=== PATIENT | female | born 1960 | race Caucasian/White ===

== ENCOUNTER 2017-05-19 11:19 | Emergency (ER) | payer BC ==
--- NOTE | 2017-05-19 12:19 | EDM.PDOC ---
ED HPI GENERAL MEDICAL PROBLEM - General Chief Complaint: General Stated Complaint: FLU Time Seen by Provider: 05/19/17 12:05 Source of Information: Reports: Patient History Limitations: Reports: No Limitations - History of Present Illness INITIAL COMMENTS - FREE TEXT/NARRATIVE: 56 yo female presents to the ER for about a week's duration of influenza-like sx 's. Called the clinic for the first time today and they could not get her in so sent her to the ER. Has had congestion, cough, and low grade fevers at times. No GI sx's. No rash. She did not get a flu shot and is not a smoker. Is missing work. Onset: Gradual Onset Date: 05/13/17 Duration: Day(s):, Constant Location: Reports: Face (nose), Chest Quality: Reports: Other (no pain) Severity: Moderate Improves with: Reports: None Worsens with: Reports: None Context: Reports: Other (URI sx's. No influenza vaccine.) Associated Symptoms: Reports: Cough, Fever/Chills, Loss of Appetite. Denies: Chest Pain, Nausea/Vomiting, Shortness of Breath Treatments VERIFICATION MANAGER: Reports: Other (see below) (none) - Related Data Allergies Allergy/AdvReac Type Severity Reaction Status Date / Time No Known Allergies Allergy Verified 05/19/17 11:29 Home Meds: Home Meds NK [No Known Home Meds] 05/19/17 [History] Past Medical History HEENT History: Reports: Sinusitis Neurological History: Reports: Migraines Social & Family History - Tobacco Use Smoking Status *Q: Never Smoker Second Hand Smoke Exposure: Yes - Alcohol Use Days Per Week of Alcohol Use: 1 Number of Drinks Per Day: 1 Total Drinks Per Week: 1 - Recreational Drug Use Recreational Drug Use: No ED ROS GENERAL - Review of Systems Review Of Systems: See Below Constitutional: Reports: Fever, Chills, Malaise HEENT: Reports: Rhinitis Respiratory: Reports: Cough, Sputum (at times). Denies: Shortness of Breath, Wheezing Cardiovascular: Reports: No Symptoms GI/Abdominal: Reports: No Symptoms : Reports: No Symptoms Musculoskeletal: Reports: No Symptoms Skin: Reports: No Symptoms Neurological: Reports: No Symptoms Psychiatric: Reports: No Symptoms ED EXAM, GENERAL - Physical Exam Exam: See Below Exam Limited By: No Limitations General Appearance: Alert, WD/WN, No Apparent Distress Eye Exam: Bilateral Eye: Normal Inspection Ears: Normal External Exam, Normal Canal, Hearing Grossly Normal, Normal TMs Ear Exam: Bilateral Ear: Auricle Normal, Canal Normal, TM normal Nose: Nasal Drainage (mostly white), Other (congestion present) Throat/Mouth: Normal Inspection, Normal Lips, Normal Oropharynx, Normal Voice, No Airway Compromise Head: Atraumatic, Normocephalic Neck: Normal Inspection, Supple Respiratory/Chest: No Respiratory Distress, Lungs Clear, Normal Breath Sounds, No Accessory Muscle Use Cardiovascular: Regular Rate, Rhythm, No Edema Extremities: Normal Inspection Neurological: Alert, Oriented, CN II-XII Intact, Normal Cognition, No Motor/ Sensory Deficits Psychiatric: Normal Affect, Normal Mood Skin Exam: Warm, Dry, Intact, Normal Color, No Rash Course - Vital Signs Last Recorded V/S: Last Vital Signs Temp 36.9 C 05/19/17 11:19 Pulse 105 H 05/19/17 11:19 Resp 18 05/19/17 11:19 BP 117/59 L 05/19/17 11:19 Pulse Ox 100 05/19/17 11:19 - Orders/Labs/Meds Labs: Laboratory Tests 05/19/17 Range/Units 12:33 WBC 9.7 (4.5-12.0) X10-3/uL RBC 4.05 (3.23-5.20) x10(6)uL Hgb 12.6 (11.5-15.5) g/dL Hct 37.3 (30.0-51.3) % MCV 92.1 (80-96) fL MCH 31.0 (27.7-33.6) pg MCHC 33.7 (32.2-35.4) g/dL RDW 11.9 (11.5-15.5) % Plt Count 124 L (125-369) X10(3)uL Departure - Departure Time of Disposition: 13:00 Disposition: Home, Self-Care 01 Condition: Good Clinical Impression: Influenza-like illness - Discharge Information Referrals: PCP,Not In Area [Primary Care Provider] - Forms: ED Department Discharge
== END 2017-05-19 13:10 | disposition home or self-care (01) ==
LOC: FB.ED 11:19
DX: J11.1 Influenza due to unidentified influenza virus with other respiratory manifestations (principal)
CPT/HCPCS: 36415; 85027; 87804; 99283

== ENCOUNTER → 2024-03-08 | Day surgery (SDC) | payer MEDICARE, MEDICAID ==
[~2024-03-08] MED LIST: Lactated Ringers 1,000 ML IV PRN; Midazolam 1 MG/ML 2 ML SDV IV ONE; fentaNYL 100 MCG/2 ML SDV IV ONE
[2024-03-08] MEDS: Sodium Chloride 0.9% 10 ML Syringe FLUSH PRN (09:07)
[2024-03-08] MEDS: acetaZOLAMIDE 500 MG Cap.ER PO ONE (10:53)
== END ==
LOC: FB.SDS 07:44
PROVIDERS: ATTEND Ophthalmology
DX: H25.813 Combined forms of age-related cataract, bilateral (principal); H35.363 Drusen (degenerative) of macula, bilateral; H04.123 Dry eye syndrome of bilateral lacrimal glands; H52.03 Hypermetropia, bilateral
CPT/HCPCS: 66984; A9270; J2250; J3010; V2632; 00142

== ENCOUNTER 2024-04-12 07:55 | Day surgery (SDC) | payer MEDICARE, MEDICAID ==
[2024-04-12] MEDS ORDERED: fentaNYL 100 MCG/2 ML SDV IV ONE (07:56)
[2024-04-12] MEDS ORDERED: Midazolam 1 MG/ML 2 ML SDV IV ONE (07:56)
[2024-04-12] MEDS ORDERED: Lactated Ringers 1,000 ML IV PRN (08:00)
[2024-04-12] MEDS: Sodium Chloride 0.9% 10 ML Syringe FLUSH PRN (08:54)
[2024-04-12] MEDS: acetaZOLAMIDE 500 MG Cap.ER PO ONE (10:26)
== END 2024-04-12 10:44 | disposition home or self-care (01) ==
LOC: FB.SDS 07:55
PROVIDERS: ATTEND Ophthalmology
DX: H26.9 Unspecified cataract (principal)
CPT/HCPCS: 00142; A9270-GY; J2250; J3010; V2632